=== PATIENT | female | born 1950 | race Caucasian/White ===

== ENCOUNTER 2017-10-26 11:53 | Inpatient (IN) | payer MEDICARE, OTHER ==
[2017-10-26] MEDS: SOD CHLORIDE 0.9% 1,000 ML IV ×3 (12:37→19:40)
[2017-10-26] MEDS: morphine 4 MG/ML VIAL IV (12:38)
[2017-10-26] MEDS: ONDANSETRON 4 MG INJ IV ×4 (12:38→18:32)
[2017-10-26 12:47] LABS: ADD MAN DIFF? NO
[2017-10-26 12:49] LABS: BASOPHILS % 0.3 % (0.0-2.0); EOSINOPHILS % 0.4 % (0.0-7.0); HEMATOCRIT 41.9 % (37.0-47.0); HEMOGLOBIN 14.3 g/dl (12.0-16.0); LYMPHOCYTES # 1.3 10^3/ul (0.8-2.9); LYMPHOCYTES % 13.6 % (15.0-51.0); MEAN CORPUSCULAR HEMOGLOBIN 30.4 pg (29.0-33.0); MEAN CORPUSCULAR HGB CONC 34.1 g/dl (32.0-37.0); MEAN CORPUSCULAR VOLUME 89.1 fl (82.0-101.0); MEAN PLATELET VOLUME 10.3 fl (7.4-10.4); MONOCYTE # 0.5 10^3/ul (0.3-0.9); MONOCYTES % 5.3 % (0.0-11.0); NEUTROPHIL # 7.5 10^3/ul (1.6-7.5); PLATELET COUNT 153 10^3/UL (140-415); RED CELL DISTRIBUTION WIDTH 12.5 % (11.5-14.5)
[2017-10-26 12:49] LABS: WHITE BLOOD COUNT 9.4 10^3/ul (4.8-10.8)
[2017-10-26 13:01] LABS: ADD UMIC YES; UR ASCORBIC ACID 40 mg/dL (NEGATIVE); UR BACTERIA FEW /HPF (NONE SEEN); UR BILIRUBIN (Dip) NEGATIVE (NEGATIVE); UR BLOOD (Dip) 1+ mg/dL (NEGATIVE); UR CLARITY CLOUDY (CLEAR); UR COLOR AMBER (YELLOW); UR GLUCOSE (Dip) NEGATIVE (NEGATIVE); UR KETONES (Dip) TRACE mg/dL (NEGATIVE); UR LEUKOCYTE ESTERASE (Dip) NEGATIVE Leu/ul (NEGATIVE); UR NITRITE (Dip) NEGATIVE (NEGATIVE); UR RBC > 182 /HPF (0-5); UR SPECIFIC GRAVITY (Dip) 1.015 (1.003-1.030); UR SQUAMOUS EPITHELIAL CELL FEW /HPF (FEW); UR TOTAL PROTEIN (Dip) NEGATIVE (NEGATIVE); UR UROBILINOGEN (Dip) NEGATIVE (NEGATIVE); UR WBC 15 /HPF (0-5)
[2017-10-26 13:08] LABS: INR 0.97
[2017-10-26 13:09] LABS: PARTIAL THROMBOPLASTIN TIME 26.2 Sec (25.0-35.0)
[2017-10-26 13:22] LABS: ALBUMIN 3.9 g/dl (3.3-4.9); ALBUMIN/GLOBULIN RATIO 1.44; ALKALINE PHOSPHATASE 65 IU/L (42-121); AMYLASE 90 U/L (11-123); ANION GAP 14 (8-16); ASPARTATE AMINO TRANSFERASE 20 IU/L (15-46); BILIRUBIN,INDIRECT 0.3 mg/dl (0-1.1); BILIRUBIN,TOTAL 0.3 mg/dl (0.2-1.3); BLOOD UREA NITROGEN 13 mg/dl (7-20); CALCIUM 8.8 mg/dl (8.4-10.2); CARBON DIOXIDE 22 mmol/L (21-31); CHLORIDE 110 mmol/L (97-110); CREATININE 0.61 mg/dl (0.44-1.00); GLUCOSE 94 mg/dl (70-220); LIPASE 114 U/L (23-300); POTASSIUM 4.3 mmol/L (3.5-5.1); SODIUM 142 mmol/L (135-144); TOTAL PROTEIN 6.6 g/dl (6.1-8.1)
[2017-10-26 13:23] LABS: ALANINE AMINOTRANSFERASE 25 IU/L (13-69)
[2017-10-26 13:35] LABS: TROPONIN-I < 0.010 ng/ml (0.000-0.120)
[2017-10-26] MEDS: HYDROmorphONE 1 MG/ML SYG IV (13:49)
[2017-10-26] MEDS: SOD CHLORIDE 0.9% 100 ML (14:45)
[2017-10-26] MEDS: IOHEXOL 300MG/ML 150 ML BTL (14:45)
[2017-10-26] MEDS: CEFTRIAXONE 1 GM/50 ML (PMX) 50 ML IVPB (15:14)
[2017-10-26] MEDS: KETOROLAC 30 MG INJ IV (15:14)
[2017-10-26] MEDS: METOCLOPRAMIDE 10 MG INJ IV ×2 (15:36→19:34)
[2017-10-26] MEDS: LORAZEPAM 2 MG INJ IV (16:08)
[2017-10-26] MEDS: TAMSULOSIN (SR) 0.4 MG CAP PO (16:38)
[2017-10-26 19:17] LABS: CREATINE KINASE 25 IU/L (23-200)
[2017-10-26 19:30] LABS: CK INDEX 2.1; CK-MB 0.53 ng/ml (0.0-2.4); TROPONIN-I < 0.010 ng/ml (0.000-0.120)
[2017-10-26] MEDS ORDERED: ACETAMINOPHEN 325 MG TAB PO (20:00)
[2017-10-26] MEDS ORDERED: ONDANSETRON 4 MG INJ IV ×2 (20:00→22:00)
[2017-10-27] MEDS: SOD CHLORIDE 0.9% 1,000 ML IV ×3 (04:00→20:52)
[2017-10-27 05:06] LABS: ADD MAN DIFF? NO
[2017-10-27 05:14] LABS: BASOPHILS % 0.3 % (0.0-2.0); EOSINOPHILS % 0.1 % (0.0-7.0); HEMATOCRIT 37.6 % (37.0-47.0); HEMOGLOBIN 12.8 g/dl (12.0-16.0); LYMPHOCYTES # 1.6 10^3/ul (0.8-2.9); LYMPHOCYTES % 20.4 % (15.0-51.0); MEAN CORPUSCULAR HEMOGLOBIN 30.8 pg (29.0-33.0); MEAN CORPUSCULAR VOLUME 90.4 fl (82.0-101.0); MEAN PLATELET VOLUME 10.7 fl (7.4-10.4); MONOCYTE # 0.6 10^3/ul (0.3-0.9); MONOCYTES % 7.4 % (0.0-11.0); NEUTROPHIL # 5.6 10^3/ul (1.6-7.5); NEUTROPHILS % 71.5 % (39.0-77.0); PLATELET COUNT 135 10^3/UL (140-415); RED BLOOD COUNT 4.16 10^6/ul (4.20-5.40); RED CELL DISTRIBUTION WIDTH 12.7 % (11.5-14.5)
[2017-10-27 05:14] LABS: WHITE BLOOD COUNT 7.9 10^3/ul (4.8-10.8)
[2017-10-27] MEDS: CEFTRIAXONE 1 GM/50 ML (PMX) 50 ML IVPB (05:16)
[2017-10-27] MEDS: TAMSULOSIN (SR) 0.4 MG CAP PO ×2 (05:16→20:50)
[2017-10-27 06:45] LABS: ALANINE AMINOTRANSFERASE 38 IU/L (13-69); ALKALINE PHOSPHATASE 45 IU/L (42-121); ASPARTATE AMINO TRANSFERASE 27 IU/L (15-46); BILIRUBIN,INDIRECT 0.4 mg/dl (0-1.1); BILIRUBIN,TOTAL 0.4 mg/dl (0.2-1.3); BLOOD UREA NITROGEN 11 mg/dl (7-20); CALCIUM 8.3 mg/dl (8.4-10.2); CARBON DIOXIDE 22 mmol/L (21-31); CHLORIDE 114 mmol/L (97-110); CREATININE 0.56 mg/dl (0.44-1.00); GLUCOSE 84 mg/dl (70-220); PHOSPHORUS 3.7 mg/dl (2.5-4.9); SODIUM 144 mmol/L (135-144); TOTAL PROTEIN 5.5 g/dl (6.1-8.1)
[2017-10-27 07:43] LABS: ANION GAP 12 (8-16); POTASSIUM 4.1 mmol/L (3.5-5.1)
[2017-10-27] MEDS ORDERED: KETOROLAC 30 MG INJ IV (14:30)
[2017-10-27] MEDS ORDERED: KETOROLAC 15 MG INJ IV (15:00)
[2017-10-27] MEDS: NIFEdipine (XL) 30 MG TAB PO (16:27)
[2017-10-27] MEDS: DOCUSATE SODIUM 100 MG CAP PO (21:00)
[2017-10-28 05:15] LABS: ADD MAN DIFF? NO
[2017-10-28] MEDS: SOD CHLORIDE 0.9% 1,000 ML IV ×2 (05:19→14:06)
[2017-10-28] MEDS: CEFTRIAXONE 1 GM/50 ML (PMX) 50 ML IVPB (05:19)
[2017-10-28 05:27] LABS: WHITE BLOOD COUNT 6.8 10^3/ul (4.8-10.8)
[2017-10-28 05:27] LABS: BASOPHILS % 0.4 % (0.0-2.0); EOSINOPHILS # 0.1 10^3/ul (0.0-0.5); EOSINOPHILS % 1.8 % (0.0-7.0); HEMATOCRIT 35.4 % (37.0-47.0); HEMOGLOBIN 12.2 g/dl (12.0-16.0); LYMPHOCYTES # 2.2 10^3/ul (0.8-2.9); LYMPHOCYTES % 31.7 % (15.0-51.0); MEAN CORPUSCULAR HGB CONC 34.5 g/dl (32.0-37.0); MEAN CORPUSCULAR VOLUME 89.8 fl (82.0-101.0); MEAN PLATELET VOLUME 10.9 fl (7.4-10.4); MONOCYTE # 0.6 10^3/ul (0.3-0.9); MONOCYTES % 9.4 % (0.0-11.0); NEUTROPHIL # 3.8 10^3/ul (1.6-7.5); NEUTROPHILS % 56.4 % (39.0-77.0); PLATELET COUNT 120 10^3/UL (140-415); RED BLOOD COUNT 3.94 10^6/ul (4.20-5.40); RED CELL DISTRIBUTION WIDTH 13.1 % (11.5-14.5)
[2017-10-28 05:41] LABS: INR 1.06; PROTIME 13.9 Sec (11.9-14.9); PT RATIO 1.1
[2017-10-28 05:42] LABS: PARTIAL THROMBOPLASTIN TIME 27.9 Sec (25.0-35.0)
[2017-10-28 06:01] LABS: ALANINE AMINOTRANSFERASE 36 IU/L (13-69); ALBUMIN 2.8 g/dl (3.3-4.9); ALBUMIN/GLOBULIN RATIO 1.16; ALKALINE PHOSPHATASE 46 IU/L (42-121); ANION GAP 7 (8-16); ASPARTATE AMINO TRANSFERASE 17 IU/L (15-46); BILIRUBIN,INDIRECT 0.5 mg/dl (0-1.1); BILIRUBIN,TOTAL 0.5 mg/dl (0.2-1.3); BLOOD UREA NITROGEN 10 mg/dl (7-20); CALCIUM 8.1 mg/dl (8.4-10.2); CARBON DIOXIDE 25 mmol/L (21-31); CHLORIDE 115 mmol/L (97-110); CREATININE 0.59 mg/dl (0.44-1.00); GLUCOSE 83 mg/dl (70-220); MAGNESIUM 1.8 mg/dl (1.7-2.5); PHOSPHORUS 2.9 mg/dl (2.5-4.9); POTASSIUM 3.9 mmol/L (3.5-5.1); SODIUM 143 mmol/L (135-144); TOTAL PROTEIN 5.2 g/dl (6.1-8.1)
[2017-10-28 07:10] LABS: HEMOGLOBIN A1C 5.1 % (0-5.9)
[2017-10-28] MEDS: NIFEdipine (XL) 30 MG TAB PO (08:51)
[2017-10-28] MEDS: ACETAMINOPHEN 325 MG TAB PO (15:00)
[2017-10-28] MEDS ORDERED: BISACODYL 10 MG SUPP PR (15:30)
[2017-10-28] MEDS ORDERED: BISACODYL (EC) 5 MG TAB PO (15:30)
[2017-10-28] MEDS ORDERED: IBUPROFEN 600 MG TAB PO (16:30)
[2017-10-28] MEDS: TAMSULOSIN (SR) 0.4 MG CAP PO (16:57)
[2017-10-28] MEDS ORDERED: PROGESTERONE 100 MG CAP PO ×2 (21:00)
[2017-10-29] MEDS ORDERED: LEVOFLOXACIN 500 MG TAB PO (06:00)
== END 2017-10-28 17:30 | disposition home or self-care (01) | DRG 694 ==
LOC: E/R 11:53 → MS1 19:35
DX: N13.2 Hydronephrosis with renal and ureteral calculous obstruction (principal); N30.00 Acute cystitis without hematuria; R19.7 Diarrhea, unspecified; Z90.710 Acquired absence of both cervix and uterus; Z90.49 Acquired absence of other specified parts of digestive tract
CPT/HCPCS: 36415; 71045; 74018; 74178; 80053; 81001; 82150; 82550; 82553; 83036; 83690; 83735; 84100; 84443; 84484; 85025; 85610; 85730; 87045; 87086; 93005; 96374; 96375; 96376; 99285-25